=== PATIENT | female | born 1965 | race Caucasian/White ===

== ENCOUNTER 2016-04-10 08:13 | Outpatient (CLI) | payer OTHER | END 2016-04-10 17:59 | disposition home or self-care (01) | LOC: SMA 08:13 | PROVIDERS: ATTEND Family Medicine | DX: Z12.31 Encounter for screening mammogram for malignant neoplasm of breast (principal) | CPT/HCPCS: 77067; G0202 ==

== ENCOUNTER 2017-04-19 14:50 | Outpatient (CLI) | payer OTHER | END 2017-04-19 19:49 | disposition home or self-care (01) | LOC: SMA 14:50 | PROVIDERS: ATTEND Family Medicine | DX: Z12.31 Encounter for screening mammogram for malignant neoplasm of breast (principal); R92.1 Mammographic calcification found on diagnostic imaging of breast | CPT/HCPCS: 77067 ==

== ENCOUNTER 2018-04-22 07:52 | Outpatient (CLI) | payer BC | END 2018-04-22 20:52 | disposition home or self-care (01) | LOC: SMA 07:52 | PROVIDERS: ATTEND Family Medicine | DX: Z12.31 Encounter for screening mammogram for malignant neoplasm of breast (principal) | CPT/HCPCS: 77067 ==

== ENCOUNTER 2019-04-24 07:37 | Outpatient (CLI) | payer BC | END 2019-04-24 21:03 | disposition home or self-care (01) | LOC: SMA 07:37 | PROVIDERS: ATTEND Family Medicine | DX: Z12.31 Encounter for screening mammogram for malignant neoplasm of breast (principal) | CPT/HCPCS: 77067 ==

== ENCOUNTER 2020-07-29 08:33 | Outpatient (CLI) | payer BC | END 2020-07-29 20:44 | disposition home or self-care (01) | LOC: SMA 08:33 | PROVIDERS: ATTEND Family Medicine | DX: Z12.31 Encounter for screening mammogram for malignant neoplasm of breast (principal) | CPT/HCPCS: 77067 ==

== ENCOUNTER 2021-07-31 08:56 | Outpatient (CLI) | payer BC | END 2021-07-31 19:06 | disposition home or self-care (01) | LOC: SMA 08:56 | PROVIDERS: ATTEND Nurse Practitioner Family | DX: Z12.31 Encounter for screening mammogram for malignant neoplasm of breast (principal); N64.89 Other specified disorders of breast | CPT/HCPCS: 77067 ==